=== PATIENT | male | born 1965 | race Caucasian/White ===

== ENCOUNTER → 2022-03-15 | Day surgery (SDC) | payer BC ==
[~2022-03-15] MED LIST: AMLODIPINE BESYL5 MG PO; ATORVASTATIN CA10 MG PO; HYOSCYAMINE SULFATE 0.5 MG/ML INJ IV ONE; METOPROLOL SUCC25 MG PO; MIDAZOLAM HCL 2 MG/2 ML VIAL ONE; OMEGA 3 1,0001 EACH PO; PROPOFOL IV EMULSION 10 MG/ML 20 ML VIAL IV ONE; VITAMIN D PO
[2022-03-15 10:30] VITALS: BP 104/77
== END | disposition home or self-care (01) ==
LOC: OR 08:08
PROVIDERS: ATTEND Internal Medicine Gastroenterology
DX: Z09 Encounter for follow-up examination after completed treatment for conditions other than malignant neoplasm (principal); K63.5 Polyp of colon; K64.8 Other hemorrhoids; Z71.3 Dietary counseling and surveillance; G47.33 Obstructive sleep apnea (adult) (pediatric); E78.5 Hyperlipidemia, unspecified; I10 Essential (primary) hypertension; Z01.812 Encounter for preprocedural laboratory examination; Z20.822 Contact with and (suspected) exposure to COVID-19; Z79.899 Other long term (current) drug therapy; Z68.39 Body mass index [BMI] 39.0-39.9, adult
CPT/HCPCS: 0223U; 36415; 45380; 45385; J1980; J2250; J2704; 45378